=== PATIENT | male | born 1960 | race Two or more races ===

== ENCOUNTER 2022-04-16 17:26 | Inpatient (IN) | payer OTHER ==
[~2022-04-16] VITALS: Ht 160 cm; Wt 74.8 kg
[2022-04-16 18:14] LABS: HEMATOCRIT 43.6 % (36.7-47.1); MEAN CORPUSCULAR HEMOGLOBIN 31.8 uug (23.8-33.4); MEAN CORPUSCULAR VOLUME 94.4 fL (73.0-96.2); PLATELET COUNT (AUTO) 368 K/uL (152-348)
[2022-04-16 18:25] LABS: CARBON DIOXIDE 27 mmol/L (21-32); CHLORIDE 101 mmol/L (98-107); GLUCOSE 123 mg/dL (74-106); POTASSIUM 4.1 mmol/L (3.5-5.1); UREA NITROGEN, BLOOD 15 mg/dL (7-18)
[2022-04-16 18:30] LABS: ALANINE AMINOTRANSFERASE 49 U/L (16-63); ALKALINE PHOSPHATASE 76 U/L (50-136); ASPARTATE AMINOTRANSFERASE 33 U/L (15-37); BILIRUBIN,DIRECT < 0.1 mg/dL (0.0-0.2); BILIRUBIN,TOTAL 0.2 mg/dL (0.2-1.0); TOTAL PROTEIN, SERUM 7.7 g/dL (6.4-8.2)
[2022-04-16] MEDS ORDERED: NITROGLYCERIN OINT 1 GM PACKET TP ONE ×2 (18:45→19:25)
[2022-04-16] MEDS ORDERED: ENALAPRILAT DIHYDRATE 1.25 MG/1 ML VIAL IV ONE ×2 (18:45→19:24)
[2022-04-16] MEDS ORDERED: ASPIRIN 81 MG TAB.CHEW PO ONE (18:45)
[2022-04-16] MEDS ORDERED: CLONIDINE HCL 0.1 MG TABLET PO ONE (18:45)
--- NOTE | 2022-04-16 19:15 | NUR ---
Called [facility] for possible transfer for Stemi and spoke to renal case manager Bhumi who request facesheet to be faxed to
--- NOTE | 2022-04-16 19:17 | NUR ---
Dr Tsai speaking with Regis Sellers who is the billing adjudicator interventionalist from [facility].
[2022-04-16] MEDS ORDERED: ENOXAPARIN SODIUM 80 MG/0.8 ML DISP.SYRIN SQ ONE ×2 (19:22→19:30)
[2022-04-16] MEDS ORDERED: ASPIRIN 81 MG TAB.CHEW ONE (19:24)
[2022-04-16] MEDS ORDERED: CLONIDINE HCL 0.1 MG TABLET ONE (19:25)
--- NOTE | 2022-04-16 19:29 | NUR ---
Dr Tsai spoke with Dr Goldman again who states this patient is not a candidate for [facility].
--- NOTE | 2022-04-16 19:34 | NUR ---
Dr Tsai spoke with Dr Vyas water conservation specialist who accept patient.
[2022-04-16] MEDS ORDERED: NITROGLYCERIN 0.4 MG/TAB BOTTLE SL ONE ×2 (19:41→19:45)
[2022-04-16] MEDS ORDERED: ACETAMINOPHEN ES 500 MG TABLET ONE (19:49)
[2022-04-16] MEDS ORDERED: HYDROCODONE/APAP 5-325MG TABLET ONE (19:49)
[2022-04-16] MEDS ORDERED: HYDROCODONE/APAP 5-325MG TABLET PO ONE (20:00)
[2022-04-16] MEDS ORDERED: ACETAMINOPHEN ES 500 MG TABLET PO ONE (20:00)
[2022-04-16] MEDS ORDERED: BUPR-53 PO (20:07)
[2022-04-16] MEDS ORDERED: ASPI81TA31 PO (20:07)
[2022-04-16] MEDS ORDERED: NIFE60TA2 PO (20:07)
[2022-04-16] MEDS ORDERED: ROSU10TA2 PO (20:07)
[2022-04-16] MEDS ORDERED: METO-356 PO (20:07)
[2022-04-16] MEDS ORDERED: VITA-287 PO (20:07)
[2022-04-16] MEDS ORDERED: DICL100G31 TP (20:07)
[2022-04-16] MEDS ORDERED: TADA5TAB2 PO (20:07)
[2022-04-16] MEDS ORDERED: CHOL10005 PO (20:07)
[2022-04-16] MEDS ORDERED: VALS320T2 PO (20:07)
--- NOTE | 2022-04-16 20:14 | NUR ---
Care assumed at 191, patient was off unit to ct, has returned. Patient is alert and oriented x4, no voiced c/o of pain or discomfort at this time. Patient and family informed of plan of care. Patient has been medicated as per order. No s/s of any distress noted, saline lock intact, patient self position for comfort. Side rails up will continue to monitor.
--- NOTE | 2022-04-16 20:44 | NUR ---
Paged Epic roll contour grinder, waiting for call back.
--- NOTE | 2022-04-16 22:14 | NUR ---
Patient requested and given water, c/o dry mouth. MD was at bedside talking with patient, patient aware will be admitted and informed of room # at this time.
[2022-04-16] MEDS ORDERED: hydrALAZINE HCL 20 MG/1 ML VIAL IV PRN (22:15)
[2022-04-16] MEDS ORDERED: ENALAPRILAT DIHYDRATE 1.25 MG/1 ML VIAL IV PRN (22:15)
[2022-04-16] MEDS ORDERED: ONDANSETRON 4 MG/2 ML VIAL IV PRN (22:15)
[2022-04-16] MEDS ORDERED: ACETAMINOPHEN 325 MG TABLET PO PRN (22:15)
[2022-04-16] MEDS ORDERED: REMEDY ESSENTIAL ZINC PASTE 113 GM TP PRN (22:15)
[2022-04-16] MEDS ORDERED: MAGNESIUM HYDROXIDE 30 ML LIQUID UDC PO PRN (22:15)
--- NOTE | 2022-04-16 22:48 | NUR ---
Report given to Giuseppe, patient remains stable for transport to unit.
[2022-04-16] MEDS ORDERED: ATORVASTATIN 20 MG TABLET PO SCH (23:01)
[2022-04-17] VITALS: BP 130/82
[2022-04-17 04:25] LABS: HEMATOCRIT 40.6 % (36.7-47.1); MEAN CORPUSCULAR HEMOGLOBIN 31.5 uug (23.8-33.4); PLATELET COUNT (AUTO) 348 K/uL (152-348)
[2022-04-17 04:32] LABS: MAGNESIUM 2.1 mg/dL (1.8-2.4); PHOSPHOROUS 4.4 mg/dL (2.5-4.9); POTASSIUM 4.1 mmol/L (3.5-5.1)
[2022-04-17 04:44] LABS: THYROID STIMULATING HORMONE 1.705 mIU/mL (0.358-3.740)
[2022-04-17 04:45] VITALS: BP 116/69
[2022-04-17 08:07] VITALS: BP 120/69
[2022-04-17] MEDS ORDERED: ASPIRIN 81 MG TAB.CHEW PO SCH (09:00)
[2022-04-17] MEDS ORDERED: NIFEdipine XL 60 MG TABSR PO SCH (09:00)
[2022-04-17] MEDS ORDERED: TADALAFIL 20 MG PO SCH (09:00)
[2022-04-17] MEDS ORDERED: VALSARTAN 160 MG TABLET PO SCH (09:00)
[2022-04-17] MEDS ORDERED: ENOXAPARIN SODIUM 40 MG/0.4 ML DISP.SYRIN SQ SCH (09:00)
[2022-04-17] MEDS ORDERED: buPROPion XL 150 MG TAB.SR.24H PO SCH (09:00)
--- NOTE | 2022-04-17 12:31 | NUR ---
dc orders received noted AND CARRIED OUT ,DC [facility]PLOCK PER MD ORDERS,DC INSTRUCTION AND EDUCATION GIVEN TO THE PT AND HIS FAMILY.PT LEFT THE FACILITY VIA PRIVATE CAR IN STABLE CONDITION
== END 2022-04-17 12:36 | disposition home or self-care (01) | DRG 199 ==
LOC: ER 17:26 → TELE3 20:45
DX: I16.9 Hypertensive crisis, unspecified (principal); I21.A1 Myocardial infarction type 2; E11.9 Type 2 diabetes mellitus without complications; Z95.0 Presence of cardiac pacemaker; F41.9 Anxiety disorder, unspecified; I10 Essential (primary) hypertension; Z20.822 Contact with and (suspected) exposure to COVID-19; E78.5 Hyperlipidemia, unspecified
CPT/HCPCS: 36415; 70450; 71045; 83735; 84100; 84443; 84484; 85025; 93005; A4663; A9150; G0378; J1650; J3490